=== PATIENT | female | born 1995 | race Caucasian/White ===

== ENCOUNTER → 2018-01-21 18:58 | Outpatient (CLI) | payer OTHER, SELFPAY ==
[2018-01-24 11:01] LABS: HPV Reflexed? NOT INDICATED
== END ==
PROVIDERS: Visit Provider Nurse Practitioner Women's Health
DX: N89.8 Other specified noninflammatory disorders of vagina (principal); Z12.4 Encounter for screening for malignant neoplasm of cervix
CPT/HCPCS: 87070; 87205; 88175; G0145